=== PATIENT | female | born 2000 | race Caucasian/White ===

== ENCOUNTER 2022-05-03 15:50 | Outpatient (CLI) | payer OTHER, SELFPAY ==
[2022-05-03 23:11] LABS: Albumin* 4.8 g/dL (3.3-5.0); Chloride* 106 mmol/L (96-114); Sodium* 140 mmol/L (135-149)
[2022-05-03 23:12] LABS: Potassium* 4.6 mmol/L (3.6-5.1)
[2022-05-03 23:14] LABS: Alkaline Phosphatase* 54 U/L (40-150); Aspartate Amino Transferase* 28 U/L (12-35); Bilirubin Total* 0.4 mg/dL (0.1-1.5); Blood Urea Nitrogen* 13 mg/dL (5-24); Carbon Dioxide* 25 mmol/L (20-32); Creatinine* 0.7 mg/dL (0.5-1.5); Estimated Glomerular Filt Rate 125 ml/min; Glucose* 95 mg/dL (60-115); Total Protein* 7.4 g/dL (6.0-8.3)
[2022-05-03 23:15] LABS: Alanine Aminotransferase* 26 U/L (4-35); Calcium* 9.8 mg/dL (8.4-10.6)
[2022-05-03 23:46] LABS: TSH With Reflex to FT4* 0.466 uIU/mL (0.270-4.200)
[2022-05-04] LABS: HIV 1/2/P24 Combo Screen* Negative (Negative)
[2022-05-04 00:03] LABS: Hepatitis C Virus Antibody* Negative (Negative)
[2022-05-04 02:38] LABS: Chlamydia DNA Amplified* NOT DETECTED (No Detected); GC DNA Amplified* NOT DETECTED (No Detected)
[2022-05-06 05:09] LABS: Rapid Plasma Reagin (RPR) Non Reactive (Non Reactive)
== END 2022-05-03 15:51 | disposition home or self-care (01) ==
PROVIDERS: PCP Family Medicine; Visit Provider Family Medicine
DX: Z00.00 Encounter for general adult medical examination without abnormal findings (principal); R53.83 Other fatigue; Z11.3 Encounter for screening for infections with a predominantly sexual mode of transmission; Z11.59 Encounter for screening for other viral diseases
CPT/HCPCS: 80053; 84443; 86592; 86703; 86803; 87491; 87591

== ENCOUNTER 2023-10-06 12:33 | Outpatient (CLI) | payer OTHER, SELFPAY | END 2023-10-06 12:34 | disposition home or self-care (01) | PROVIDERS: PCP Family Medicine; Visit Provider Family Medicine | DX: R53.83 Other fatigue (principal) | CPT/HCPCS: 82306; 84439; 84443 ==